=== PATIENT | male | born 1950 | race Caucasian/White ===

== ENCOUNTER → 2022-11-01 | Outpatient (CLI) | payer MEDICARE ==
--- NOTE | 2022-11-01 12:43 | MR ---
MRI CERVICAL SPINE: CLINICAL HISTORY: Neck pain, weakness in fingers, fall Jul 2022. Neck pain, weakness in fingers, fal l Jul 2022. TECHNIQUE: Multiplanar, multisequence imaging of the cervical spine is performed without IV contrast. COMPARISON: None. FINDINGS: Sagittal images of the cervical spine show the craniocervical junction to appear within nor mal limits. The cervical and upper thoracic spinal cord is normal in caliber and signal. There is sl ight levoconvex scoliotic curvature centered upper thoracic spine on coronal images. There is artifac t from anterior fusion plate and artificial disc material at C5-C7 levels. Some ossific fusion at thi s level is suspected. The vertebral body heights are normal above and below this level. Mild to mode rate disc space narrowing C4-C5 level with prominent spur anterior-inferior C4 level. Incidental mode rate disc space narrowing T1-T2 level. The bone marrow signal intensity is within normal limits above and below the surgical levels.. Axial images at C2-C3 level appears within normal limits. Axial images at the C3-C4 level shows broad-based right paracentral disc protrusion effacing the ante rior thecal sac and causing mild right and moderate left-sided neural foraminal narrowing. Axial images at C4-C5 level show posterior spur disc complex effacing anterior thecal sac and causing mild to moderate right greater than left bilateral neural foraminal narrowing. Axial images at C5-C6 through C7-T1 levels show artifact from surgical change otherwise appear within normal limits. IMPRESSION: Surgical changes C5-C7 levels with satisfactory alignment here. Some multilevel degenerat valerie changes are present as detailed above.
== END | disposition home or self-care (01) ==
LOC: RADMRIMAIN 11:19
PROVIDERS: ATTEND Orthopaedic Surgery Orthopaedic Surgery of the Spine
DX: M47.22 Other spondylosis with radiculopathy, cervical region (principal); M50.121 Cervical disc disorder at C4-C5 level with radiculopathy; M43.12 Spondylolisthesis, cervical region; M25.78 Osteophyte, vertebrae; M62.838 Other muscle spasm; Z98.1 Arthrodesis status
CPT/HCPCS: 72141

== ENCOUNTER → 2024-04-30 | Outpatient (CLI) | payer MEDICARE ==
[2024-04-30 06:51] LABS: African American GFR (CKD) 43 (>60 ml/min/1.73 sqM); Blood Urea Nitrogen 41 mg/dL (9-20); Non-African American GFR(CKD) 37 (>60 ml/min/1.73 sqM)
--- NOTE | 2024-04-30 12:05 | CT ---
EXAMINATION TYPE: CT soft tissue neck wo con DATE OF EXAM: 04/30/2024 HISTORY: lump infront of rt ear marked with bb COMPARISON: None CT DLP: 389.3 mGycm. Automated Exposure Control for Dose Reduction was Utilized. TECHNIQUE: Multiple axial images were obtained through the soft tissues of the neck without use of IV contrast material. FINDINGS: There are no supraclavicular lymph nodes. There is no thyroid mass or gross enlargement. The larynx including the cricoid, arytenoid and thyroid cartilages as well as the vocal cords are nor mal and symmetric. The tongue base, epiglottis, aryepiglottic folds, piriform sinuses and vallecula are normal and symme tric. The submandibular glands are normal and symmetric. There is a 2.1 x 2 cm well-circumscribed dense mass in the right parotid gland corresponding to the p alpable abnormality. Could represent a benign or malignant neoplasm and biopsy is recommended There is no pharyngeal or parapharyngeal soft tissue mass or enhancement The great vessels of the neck are normal. Left lack of contrast limits the evaluation. There is no definite lymphadenopathy There is no soft tissue swelling, inflammation or abscess. Visualized paranasal sinuses are well aerated IMPRESSION: 1. 2.1 cm hyperdense right parotid gland mass. Neoplasm is not excluded and biopsy is recommended. 2. No definite evidence of lymphadenopathy within the neck. The exam is somewhat limited due to lack of IV contrast.
== END | disposition home or self-care (01) ==
LOC: RADCTMAIN 06:07
PROVIDERS: ATTEND Otolaryngology Sleep Medicine
DX: R22.1 Localized swelling, mass and lump, neck (principal)
CPT/HCPCS: 36415; 70490; 82565; 84520

== ENCOUNTER 2024-05-06 08:42 | Day surgery (SDC) | payer MEDICARE ==
[2024-05-06 09:36] VITALS: TEMP 97.8
--- NOTE | 2024-05-06 11:21 | US ---
EXAMINATION TYPE: US biopsy parotid gland DATE OF EXAM: 05/06/2024 11:08 AM CLINICAL INDICATION:Male, 73 years old with history of R22.1 localized swelling mass lump; , thyroid nodule. COMPARISON: 04/30/2024 ATTENDING: Dr. Jey Gresham PROCEDURE: Informed consent was obtained. The risks and benefits of the procedure were discussed with the patien t. The site was marked. Timeout procedure was performed Ultrasound imaging of the thyroid demonstrates right parotid gland lesion The patient was prepped, draped in the usual sterile fashion, and locally anesthetized with 1% lidoca ine. 3 x 18-gauge core biopsies were performed. Samples were sent to the pathology department for fur ther analysis. Patient tolerated the procedure without incident and was sent home in stable conditio n. IMPRESSION: Successful ultrasound guided fine needle aspiration.
[2024-05-06 12:10] VITALS: RESP 18
[2024-05-06 12:12] VITALS: BP 122/76; PULSE 43
== END 2024-05-06 11:30 | disposition home or self-care (01) ==
LOC: RADPROMAIN 08:42
PROVIDERS: ATTEND Otolaryngology Sleep Medicine
DX: R22.1 Localized swelling, mass and lump, neck (principal); E04.1 Nontoxic single thyroid nodule
CPT/HCPCS: 42400; 76942; 88305